=== PATIENT | female | born 1930 | race Caucasian/White ===

== ENCOUNTER 2016-12-11 12:00 | Inpatient (IN) ==
--- NOTE | 2016-12-11 12:34 | Emergency Department Note ---
Arrival - Arrival Chief Complaint: Shortness of Breath ED Nursing Triage Note: c/o SOB for a couple of days and weight gain. patient with hx of CHF given extra dose of lasix with no improvement. hx: A-fib Mode of Arrival: Stretcher Limitations: No Limitations Source: Patient, Family Time Seen by Provider: 12/11/16 12:27 - History of Present Illness HPI Narrative: This 86-year-old white female shelter patient with a prior history of atrial fibrillation with congestive failure presents with a increased complaints of shortness of breath over the last several days as well as weight gain at the shelter. They adjusted her Lasix doses without significant symptomatic improvement and thus the patient presents at this time. She denies any chest pain, pedal edema, or cough. She does have orthopnea. Incidentally she does complain of abdominal cramps from constipation. Currently at rest in bed she does not appear in any acute distress. Onset (ago): day(s) (Patient presents 3 days post onset of symptoms) Consistency: constant Severity: mild Allergies/Adverse Reactions: Allergies Allergy/AdvReac Type Severity Reaction Status Date / Time Penicillins Allergy Mild HIVES Verified 06/18/16 13:04 Home Medications: Home Medications Medication Instructions Recorded Confirmed Type Memantine [Namenda] 10 mg PO BEDTIME 02/04/15 12/11/16 History Spironolactone [Aldactone] 25 mg PO DAILY 02/04/15 12/11/16 History Albuterol Neb [Proventil Neb] 1.25 mg RESP TX Q12HR #60 neb 08/08/15 12/11/16 Rx Bisacodyl Tab [Dulcolax Tab] 20 mg PO Q4H PRN #0 tablet 08/12/15 12/11/16 Rx Gabapentin Cap/Tab [Neurontin 200 mg PO BEDTIME 11/07/15 12/11/16 History Cap/Tab] Potassium Chloride [K-Tab ER] 20 meq PO DAILY 11/08/15 12/11/16 History Pantoprazole Tab [Protonix Tab] 40 mg PO BID tablet 11/15/15 12/11/16 Rx Calcium (Carb)/Vit D 600-400 1 tablet PO BID 06/18/16 12/11/16 History [Caltrate 600 + D] Digoxin [Digox] 125 mcg PO QOTHER DAY 06/18/16 12/11/16 History Multivitamin [Multivitamins] 1 each PO DAILY 06/18/16 12/11/16 History Promethazine Inj [Phenergan Inj] 25 mg IM Q4H PRN 06/18/16 12/11/16 History Acetaminophen Tab [Tylenol Tab] 650 mg PO Q6H PRN #0 tablet 06/20/16 12/11/16 Rx Furosemide Tab [Lasix Tab] 40 mg PO BID DIURETIC #0 tablet 06/20/16 12/11/16 Rx Morphine ER Tab [Ms Contin] 15 mg PO BID #60 tablet 06/20/16 12/11/16 Rx Citalopram Hydrobromide 10 mg PO DAILY 12/11/16 12/11/16 History [Citalopram HBr] Donepezil HCl [Donepezil HCl] 5 mg PO BEDTIME 12/11/16 12/11/16 History Furosemide Tab [Lasix Tab] 60 mg PO BID 12/11/16 12/11/16 History Guaifenesin/Dextromethorphan 30 ml PO Q4H PRN 12/11/16 12/11/16 History [Tussin Dm Syrup] Loperamide HCl [Loperamide] 2 mg PO DAILY MDD 4 CAPLETS IN 24 12/11/16 12/11/16 History HR Metoprolol Succinate [Metoprolol 12.5 mg PO BID 12/11/16 12/11/16 History Succinate] Mirtazapine [Mirtazapine] 15 mg PO BEDTIME 12/11/16 12/11/16 History Tramadol HCl [Tramadol Tab] 50 mg PO BEDTIME 12/11/16 12/11/16 History Review of System - Review of System 12 point system: reviewed and no additional remarkable complaints except as stated - Review of System Constitutional: Present: as per HPI Respiratory: Present: as per HPI Cardiovascular: Present: as per HPI Gastrointestinal: Present: as per HPI Medical,Surgical,& Family Hx - Medical History Cardio: History of: Cardiac Dysrhythmia (afib, ventricular fib and ventricular tach July 2015), CHF, Hypertension, Cardiovascular Problems (A FIB) No history of: MD Psychological: History of: Depression Neurology: History of: Dementia No history of: Seizures Gastrointestinal: History of: Diverticulitis/ Diverticulosis, GERD, GI Problems (constipation) Musculoskeletal: History of: Musculoskeletal Problems (back surgery) Hematology: No history of: Anemia, Blood Disorders Other: History of: Miscellaneous Medical Problems (cellulitis left leg) - Surgical History Cardiac Surgeries: Patient Denies: Cardiac Catheterization HEENT Surgeries: Surgical HX of: Eye Surgery (bilateral cataracts removed with lens implantation) Abdominal Surgeries: Surgical HX of: Abdominal Surgery, Appendectomy, Cholecystectomy, Colonoscopy (approximately 5 years ago by patient recollection) Reproductive Surgeries: Surgical HX of;: Breast Surgery (breast implants), Hysterectomy - Family History Family History: Reports;: Family Cancer (throat-sister), Family Heart Disease ( mom), Family Hypertension (mom) Denies;: Family Diabetes - Social History Smoking Status: Never smoker Frequency of Alcohol Use: None Type of Drug Use: None Exam Physical Examination: GENERAL: Well developed, well nourished elderly white female in no acute distress. HEENT: Normocephalic. No trauma. Moist mucous membranes. EOMI. PERRLA. ENT NML NECK: Supple. No adenopathy. No JVD CARDIAC: Irregular. No murmurs. Heart rate 73 CHEST: Clear to auscultation. No respiratory distress. O2 sat 100% ABDOMEN: Soft. Nontender. Active bowel sounds. EXTREMITIES: No trauma. Normal ROM. No pedal edema. SKIN: No diaphoresis. No rash. NEURO: Alert. Oriented 3, motor, sensory, vibratory intact. No focal deficits. Vital Signs: Vital Signs Temperature 98.6 F 12/11/16 12:07 Pulse Rate 106 H 12/11/16 12:07 Respiratory Rate 18 12/11/16 13:20 Blood Pressure 121/57 12/11/16 12:07 O2 Sat by Pulse Oximetry 100 12/11/16 12:07 Course - Reevaluation(s) Reevaluation #1: Advised patient she has recurrent congestive failure and would require hospitalization once again - Consultations Consultation #1: Discussed with hospitalist service will admit for further evaluation treatment. Results - Labs CBC & BMP: 12/11/16 12:53 12/11/16 12:53 Labs: I reviewed the laboratory noted the mild anemia as well as the severely elevated d-dimer. - Impressions EKG: Atrial fibrillation at a rate of 73 with rare unifocal PVC. Normal QRS duration. Nonspecific ST changes. No acute injury pattern noted. - Diagnostic Findings Procedure: Chest x-ray: image reviewed by me, report reviewed by me ( Cardiomegaly with persistent congestive heart failure), KUB x-ray: image reviewed by me, report reviewed by me (Fecal stasis), CT: image reviewed by me, report reviewed by me (CTA per Dr. Jackson negative) Disposition Clinical Impression: Congestive heart failure, Bilateral pleural effusions Case discussed with: patient, patient's family Disposition: Still a Patient Condition: Guarded Time of Disposition: 14:27
--- NOTE | 2016-12-11 12:57 | XRay Report ---
Portable chest Date: 12/11/2016 Clinical history: Shortness of breath Comparison: 06/18/2016 Technique: Portable AP sitting chest Findings: The heart is minimally enlarged with calcification in the aortic knob. Decreased but persistent diffuse parenchymal findings with smaller pleural effusions. Calcification in the wall of the bilateral breast implants. Osteopenia with minimal levoscoliosis on the lower thoracic spine and degenerative changes. Impression: Improved but persistent mild to moderate CHF with small pleural effusions. Status post augmentation mammoplasty with osteopenia. PROCEDURE INTERPRETED AT [facility] DEPARTMENT OF RADIOLOGY Final Report Signed by: Dr. Izzy Jackson
--- NOTE | 2016-12-11 12:58 | XRay Report ---
Exam: XR KUB Date: 12/11/2016 12:27 PM Comparison: None Indication: Generalized abdominal pain Technique:[Supine abdomen] Findings: Nonobstructed bowel gas pattern. Increased fecal material in the colon. Prior cholecystectomy. Dextroscoliosis of the lumbar spine with osteopenia and degenerative changes. Diffuse arterial calcifications. Impression: Nonobstructive bowel gas pattern. Increased fecal material consistent with constipation. Prior cholecystectomy with diffuse arterial calcifications. Osteopenia with dextroscoliosis of the lumbar spine with degenerative changes. PROCEDURE INTERPRETED AT [facility] DEPARTMENT OF RADIOLOGY Final Report Signed by: Dr. Izzy Jackson
--- NOTE | 2016-12-11 13:00 | EKG Report ---
Stationary ECG Study [facility] ER Test Date: 12/11/2016 12:26:01 PM Pat Name: STEWART VERA Department: Room: 535 Gender: F [employer] Measurer: : 1930 Requested by: Lenard Harris Order Number: [id number] Reading MD: TELLY REDDING Intervals Johnston Rate: 73 P: 999 VA: 0 QRS: 66 QRSD: 86 T: -45 QT: 383 QTc: 409 Interpretive Statements ATRIAL FIBRILLATION WITH ABERRANT CONDUCTION OR VENTRICULAR PREMATURE COMPLEXES Electronically Signed On 12-12-16 18:54:35 CDT by TELLY REDDING [email or web address]
[2016-12-11] MEDS: ALBUTEROL 2.5 MG/3 ML NEB RESP TX SCH ×3 (13:19→13:45)
[2016-12-11 13:21] LABS: Basophils % 0.3 % (0.0-0.8); Eosinophils # 0.5 10*3/uL (0.0-0.87); Eosinophils % 4.8 % (0.00-10.9); Hematocrit 32.9 VOL% (35.7-47.0); Hemoglobin 9.7 GM/DL (12.0-16.0); Immature Granulocytes % 0.7 %; Immature Granulocytes Absolute 0.08 #; Lymphocytes # 1.2 10*3/uL (1.4-4.0); Lymphocytes % 11.3 % (21.3-54.2); Mean Corpuscular HGB Conc 29.5 GM/DL (32-36); Mean Corpuscular Hemoglobin 27 PG (27-34); Mean Corpuscular Volume 90.4 FL (87-102); Mean Platelet Volume 11.7 FL (9.6-12.0); Monocytes % 9.4 % (1.7-12.7); Neutrophils % 73.5 % (38.7-73.9); Platelet Count 189 T/CUMM (130-400); Red Blood Count 3.64 MC/CUMM (3.8-5.5); White Blood Count 10.9 T/CUMM (4-12)
[2016-12-11 13:32] LABS: D-Dimer 2.6 MG/L FEU; INR 1.1; Partial Thromboplastin Time 27.7 SECS (0-40)
[2016-12-11 13:34] LABS: Alanine Aminotransferase 11 U/L (13-56); Albumin 3.3 G/DL (3.4-5.0); Alkaline Phosphatase 136 U/L (45-117); Amylase 51 U/L (25-115); Aspartate Amino Transferase 16 U/L (0-37); Blood Urea Nitrogen 10 MG/DL (7-18); Calcium 8.5 MG/DL (8.5-10.1); Glucose 147 MG/DL (74-106); Osmolality,Calculated 287.8 MOS/KG (273-304); Sodium 144 MMOL/L (136-145); Total Protein 7.1 G/DL (6.4-8.3); Troponin I Only 0.017 NG/ML (0.00-0.045)
[2016-12-11] MEDS ORDERED: ONDANSETRON 4 MG/2 ML VIAL ONE (13:37)
[2016-12-11] MEDS: ONDANSETRON 4 MG/2 ML VIAL IV STA ×2 (13:40→13:42)
--- NOTE | 2016-12-11 14:27 | CT Report ---
Exam: CT chest with contrast, PE study Date: 12/11/2016 Comparison: None Reason:, Shortness of breath Pulmonary embolus Technique: Axial images of the chest were obtained after administration of 80 cc of IV Omnipaque 350 intravenous contrast. Coronal reformatted images were also acquired. The study was performed per pulmonary embolism protocol. Total DLP: 355.30 Findings: The heart is enlarged with coronary artery calcifications. No evidence of aortic dissection with arterial calcifications. Motion artifact with small filling defects in the subsegmental pulmonary arteries in the left upper lobe. Mediastinal and hilar nodes which are borderline size to minimally enlarged. At the level of the krishna, the right pleural effusion measures 62 mm in length. The left pleural effusion measures 10 mm in depth. There is associated atelectasis/consolidation in the posterior right upper lobe and the lower lobes, especially the right. Diffuse groundglass opacities are noted. Extensive calcification of the wall of the bilateral breast implants. Degenerative changes are noted with chronic T12 compression fracture. Impression: Motion artifact which could account for the possible filling defects in the subsegmental arteries in the left upper lobe location. However this finding makes it difficult to exclude small pulmonary emboli and therefore venous ultrasound of the lower extremities may be helpful for further evaluation. Cardiomegaly with coronary artery calcifications. Moderately large right and small left pleural effusions with associated atelectasis/infiltration/edema. Calcification in the wall of the breast implants. These findings were discussed with Dr. Dotson at 2:20 PM on 12/11/2016. This CT exam was performed using one or more the following dose reduction techniques: Automated exposure control, adjustment of the MA and/or KV according to patient size, or use of iterative reconstruction technique. PROCEDURE INTERPRETED AT [facility] DEPARTMENT OF RADIOLOGY Final Report Signed by: Dr. Izzy Jackson
[2016-12-11] MEDS ORDERED: ACETAMINOPHEN 325 MG TABLET PO PRN (14:33)
[2016-12-11] MEDS ORDERED: ONDANSETRON 4 MG/2 ML VIAL IV PRN (14:33)
--- NOTE | 2016-12-11 15:52 | Hospitalist History & Physical ---
Assessment and Plan - Time spent with patient Time spent with patient: Less than 30 minutes (1) CHF exacerbation Status: Acute Assessment and plan: A 66-year-old white female admitted with CHF exacerbation. Her chest x-ray and CT of the chest are showing bilateral pleural effusions. CT of the chest is recommending lower extremity ultrasound to rule out possible small PE. Will restart all of her home medicines. Put her on IV Lasix. Start some breathing treatments. Patient sees Dr. Fernandez regularly and she is asking if we can ask Merissa to come by and see her. We will do a courtesy consult for Merissa Cabezas NP ACNP Constipation due to opioid use--we will put her on a bowel regimen if not already on one. This is been discussed with Dr. Lai. Further recommendations to follow. Current Visit: Yes (2) Constipation due to opioid therapy Status: Acute Current Visit: Yes History of Present Illness Chief complaint: Shortness of breath History of present illness: Ms. Grant is an 86-year-old white female with history of CHF, hypertension, A. fib, and chronic pain [facility] ED [facility] with increasing shortness of breath for 3-4 days. Patient states she takes p.o. Lasix 40 mg twice daily per Dr. Fernandez but they have upped her to 60 since Wednesday because of the shortness of breath. Patient continued to worsen despite this so they brought her into the ED. She is afebrile, vital signs are stable and she is satting at 90% on 2 L. Her WBCs are normal and her BNP is 199. Her chest x-ray is showing persistent mild to moderate CHF with small pleural effusions. Dr. Dotson in the ER ordered a CT of the chest that is showing filling defects in the sub-segmental arteries in the left upper lobe location. They are making it difficult to exclude small pulmonary emboli and recommending venous ultrasound. It is also showing cardiomegaly and moderately large right and small left pleural effusions with associated atelectasis. Upon exam patient 's biggest complaint is abdominal distention with constipation and shortness of breath. She denies headache, dizziness, difficulty swallowing, chest pain, difficulty urinating, or lower extremity edema. Her sister is present and states that she has not eaten or drank much in the last week. Patient is incontinent and mostly bedridden. Hospitalist has been asked to admit Home Medications Medication Instructions Recorded Confirmed Type Memantine [Namenda] 10 mg PO BEDTIME 02/04/15 12/11/16 History Spironolactone [Aldactone] 25 mg PO DAILY 02/04/15 12/11/16 History Albuterol Neb [Proventil Neb] 1.25 mg RESP TX Q12HR #60 neb 08/08/15 12/11/16 Rx Bisacodyl Tab [Dulcolax Tab] 20 mg PO Q4H PRN #0 tablet 08/12/15 12/11/16 Rx Gabapentin Cap/Tab [Neurontin 200 mg PO BEDTIME 11/07/15 12/11/16 History Cap/Tab] Potassium Chloride [K-Tab ER] 20 meq PO DAILY 11/08/15 12/11/16 History Pantoprazole Tab [Protonix Tab] 40 mg PO BID tablet 11/15/15 12/11/16 Rx Calcium (Carb)/Vit D 600-400 1 tablet PO BID 06/18/16 12/11/16 History [Caltrate 600 + D] Digoxin [Digox] 125 mcg PO QOTHER DAY 06/18/16 12/11/16 History Multivitamin [Multivitamins] 1 each PO DAILY 06/18/16 12/11/16 History Promethazine Inj [Phenergan Inj] 25 mg IM Q4H PRN 06/18/16 12/11/16 History Acetaminophen Tab [Tylenol Tab] 650 mg PO Q6H PRN #0 tablet 06/20/16 12/11/16 Rx Furosemide Tab [Lasix Tab] 40 mg PO BID DIURETIC #0 tablet 06/20/16 12/11/16 Rx Morphine ER Tab [Ms Contin] 15 mg PO BID #60 tablet 06/20/16 12/11/16 Rx Citalopram Hydrobromide 10 mg PO DAILY 12/11/16 12/11/16 History [Citalopram HBr] Donepezil HCl [Donepezil HCl] 5 mg PO BEDTIME 12/11/16 12/11/16 History Furosemide Tab [Lasix Tab] 60 mg PO BID 12/11/16 12/11/16 History Guaifenesin/Dextromethorphan 30 ml PO Q4H PRN 12/11/16 12/11/16 History [Tussin Dm Syrup] Loperamide HCl [Loperamide] 2 mg PO DAILY MDD 4 CAPLETS IN 24 12/11/16 12/11/16 History HR Metoprolol Succinate [Metoprolol 12.5 mg PO BID 12/11/16 12/11/16 History Succinate] Mirtazapine [Mirtazapine] 15 mg PO BEDTIME 12/11/16 12/11/16 History Tramadol HCl [Tramadol Tab] 50 mg PO BEDTIME 12/11/16 12/11/16 History Allergies Allergy/AdvReac Type Severity Reaction Status Date / Time Penicillins Allergy Mild HIVES Verified 06/18/16 13:04 Medical,Surgical,& Family Hx - Medical History Cardio: History of: Cardiac Dysrhythmia (afib, ventricular fib and ventricular tach July 2015), CHF, Hypertension, Cardiovascular Problems (A FIB) No history of: [place] Psychological: History of: Depression Neurology: History of: Dementia No history of: Seizures Gastrointestinal: History of: Diverticulitis/ Diverticulosis, GERD, GI Problems (constipation) Musculoskeletal: History of: Musculoskeletal Problems (back surgery) Hematology: No history of: Anemia, Blood Disorders Other: History of: Miscellaneous Medical Problems (cellulitis left leg) - Surgical History Cardiac Surgeries: Patient Denies: Cardiac Catheterization HEENT Surgeries: Surgical HX of: Eye Surgery (bilateral cataracts removed with lens implantation) Abdominal Surgeries: Surgical HX of: Abdominal Surgery, Appendectomy, Cholecystectomy, Colonoscopy (approximately 5 years ago by patient recollection) Reproductive Surgeries: Surgical HX of;: Breast Surgery (breast implants), Hysterectomy - Family History Family History: Reports;: Family Cancer (throat-sister), Family Heart Disease ( mom), Family Hypertension (mom) Denies;: Family Diabetes - Social History Smoking Status: Never smoker Frequency of Alcohol Use: None Type of Drug Use: None Review of systems: Complete 10 system review of systems was obtained and pertinent negatives and positives are per HPI Exam - Constitutional Exam: Constitutional System: Mild distress. No tremulousness. Head: Normocephalic, atraumatic. Ears, Nose and Throat System: No evidence of Otitis or Mastoiditis. No epistaxis or discharge Eyes System: Pupils equal, round, and reactive. Extraocular muscles intact. Neck: Supple, without adenopathy, No jugular venous distention. No thyromegaly, neck mass, or prior surgery apparent. Respiratory System: Chest coarse bilaterally to auscultation. Cardiovascular System: Heart with irregularly irregular rate and rhythm. No murmur. GI System: Abdomen mildly distended, mildly tender. Hypoactive bowel sounds present. Musculoskeletal System: limbs with no pedal edema. Full distal pulses. Neurological System: No discernable sensory deficit. No aphasia Psychiatric System: Conversation is rational Results - Labs CBC & BMP: 12/11/16 12:53 12/11/16 12:53 Lab Results: I have reviewed the past 24 hour labs - Diagnostic Findings Procedure: Chest x-ray: report reviewed by me, KUB x-ray: report reviewed by me , CT - chest: report reviewed by me
[2016-12-11] MEDS ORDERED: PROMETHAZINE 25 MG/1 ML VIAL IM PRN (16:00)
--- NOTE | 2016-12-11 18:14 | Ultrasound Report ---
History is short of breath abnormal CT chest Bilateral lower extremity venous Doppler performed with grayscale, spectral Doppler, and color flow analysis performed and interpreted. No evidence of echogenic, noncompressible thrombus seen in either common femoral, superficial femoral, popliteal, or saphenous veins Impression: No evidence of DVT seen in either lower extremity. PROCEDURE INTERPRETED AT [facility] DEPARTMENT OF RADIOLOGY Final Report Signed by: Dr. Annabella Villalta
[2016-12-11] MEDS: PANTOPRAZOLE 40 MG TABLET PO SCH (18:17)
[2016-12-11] MEDS: SPIRONOLACTONE 25 MG TABLET PO SCH (18:17)
[2016-12-11] MEDS: POTASSIUM CHLORIDE 20 MEQ TABLET PO SCH (18:18)
[2016-12-11] MEDS: CITALOPRAM 20 MG TABLET PO SCH (18:18)
[2016-12-11] MEDS: MULTIVITAMIN (CENTRUM) TABLET PO SCH (18:18)
[2016-12-11] MEDS: DIGOXIN 0.125 MG TABLET PO SCH (18:18)
[2016-12-11] MEDS: LOPERAMIDE 2 MG CAPSULE PO SCH (18:18)
[2016-12-11] MEDS: ENOXAPARIN 30 MG/0.3 ML SYRINGE SUBCUT SCH (18:25)
[2016-12-11] MEDS: DOCUSATE SODIUM 100 MG CAPSULE PO SCH ×2 (18:25→20:33)
[2016-12-11] MEDS: FUROSEMIDE 40 MG/4 ML VIAL IV SCH (18:25)
--- NOTE | 2016-12-11 19:00 | Pulmonology Consult Note ---
History of Present Illness Chief complaint: Rule out PE. CHF. History of present illness: Ms. Grant is a 86 year old white female whom I been asked to see in pulmonary consultation. The request was pleural effusion, possible embolus. This patient complains of shortness of breath dyspnea on exertion chronic nonproductive cough and constipation. The remainder of her review of systems is negative. Allergies. Penicillin Home medicines. See below Hospital medicines. See below. Past history. Atrial fib. Chronic venous stasis of lower extremities. Previous appendectomy, cholecystectomy hysterectomy. Bilateral breast implants. Previous back surgery. History of erosive gastritis May 2016. History of iron deficiency anemia. Hiatal hernia Social history. Patient's sister who is an RN manages her care. Patient does not use alcohol or tobacco. She is . Family history. Her mother had heart disease and high blood pressure. A sister had throat cancer. Chest x-ray. Bilateral pleural effusions. Increased interstitial markings. Acute congestive heart failure. CT scan of the chest. Bilateral pleural effusions. Right is much larger than the left. I do not see any pulmonary emboli. Doppler venograms of the lower extremities. No deep venous thrombophlebitis Lab. Natruretic peptide is elevated 199. Electrolytes normal. Creatinine is 1.2. BUNs 10. There is a mild elevation of alkaline Pender. Transaminases are normal. Total bilirubin is 1.30. Total protein is 7.1. Albumin is 3.3. Globulin is 3.8. White blood cell count is 10,900 with 73.56 11 lymphocytes and 9 monocytes. H&H is 9.7/32.9. Red blood cell distribution width is elevated at 18. Physical exam. Vital signs. See below Psychiatric. Oriented 3 Pupils irises sclera conjunctiva eyelids are normal. Face is symmetrical. Lips and tongue are normal. Neck. Symmetrical and kyphotic. Thyroid was not palpated. Lymphatics. No submandibular cervical supraclavicular or epitrochlear adenopathy. Heart. Irregular 110 bpm Chest. Bilateral rales Abdomen. Very firm. Rare bowel sounds. Lower extremities +1/4 bilateral pedal and pretibial edema. Neuro. Cranial nerves are intact with decreased hearing acuity. Patient moves all 4 extremities. Sensory exam was not done. Gait was not tested. The remainder the physical exam is noncontributory. Impression. 1. Acute congestive heart failure with bilateral pleural effusions greater on the right as compared to the left 2. No evidence of deep venous thrombophlebitis 3. Do not think the patient had pulmonary emboli 4. Chronic atrial fib 5. See past Plan. 1. Continue diuresis. 2. Daily chest x-rays, BMP and BNP Home Medications Medication Instructions Recorded Confirmed Type Memantine [Namenda] 10 mg PO BEDTIME 02/04/15 12/11/16 History Spironolactone [Aldactone] 25 mg PO DAILY 02/04/15 12/11/16 History Albuterol Neb [Proventil Neb] 1.25 mg RESP TX Q12HR #60 neb 08/08/15 12/11/16 Rx Bisacodyl Tab [Dulcolax Tab] 20 mg PO Q4H PRN #0 tablet 08/12/15 12/11/16 Rx Gabapentin Cap/Tab [Neurontin 200 mg PO BEDTIME 11/07/15 12/11/16 History Cap/Tab] Potassium Chloride [K-Tab ER] 20 meq PO DAILY 11/08/15 12/11/16 History Pantoprazole Tab [Protonix Tab] 40 mg PO BID tablet 11/15/15 12/11/16 Rx Calcium (Carb)/Vit D 600-400 1 tablet PO BID 06/18/16 12/11/16 History [Caltrate 600 + D] Digoxin [Digox] 125 mcg PO QOTHER DAY 06/18/16 12/11/16 History Multivitamin [Multivitamins] 1 each PO DAILY 06/18/16 12/11/16 History Promethazine Inj [Phenergan Inj] 25 mg IM Q4H PRN 06/18/16 12/11/16 History Acetaminophen Tab [Tylenol Tab] 650 mg PO Q6H PRN #0 tablet 06/20/16 12/11/16 Rx Furosemide Tab [Lasix Tab] 40 mg PO BID DIURETIC #0 tablet 06/20/16 12/11/16 Rx Morphine ER Tab [Ms Contin] 15 mg PO BID #60 tablet 06/20/16 12/11/16 Rx Citalopram Hydrobromide 10 mg PO DAILY 12/11/16 12/11/16 History [Citalopram HBr] Donepezil HCl [Donepezil HCl] 5 mg PO BEDTIME 12/11/16 12/11/16 History Furosemide Tab [Lasix Tab] 60 mg PO BID 12/11/16 12/11/16 History Guaifenesin/Dextromethorphan 30 ml PO Q4H PRN 12/11/16 12/11/16 History [Tussin Dm Syrup] Loperamide HCl [Loperamide] 2 mg PO DAILY MDD 4 CAPLETS IN 24 12/11/16 12/11/16 History HR Metoprolol Succinate [Metoprolol 12.5 mg PO BID 12/11/16 12/11/16 History Succinate] Mirtazapine [Mirtazapine] 15 mg PO BEDTIME 12/11/16 12/11/16 History Tramadol HCl [Tramadol Tab] 50 mg PO BEDTIME 12/11/16 12/11/16 History Allergies Allergy/AdvReac Type Severity Reaction Status Date / Time Penicillins Allergy Mild HIVES Verified 06/18/16 13:04 Exam (Pulmonay) H&P - Constitutional Vitals: Period Temp Pulse Resp BP Sys/Tamayo Pulse Ox Last 24 Hr 98.1 F 78-80 17-18 101-102/51-64 94-94 Medical,Surgical,& Family Hx - Medical History Cardio: History of: Cardiac Dysrhythmia (afib, ventricular fib and ventricular tach July 2015), CHF, Hypertension, Cardiovascular Problems (A FIB) No history of: NV Psychological: History of: Depression Neurology: History of: Dementia No history of: Brain Aneurysm, Cerebral Hemorrhage, Cerebrovascular Accident , Cerebral Palsy, Migraine, Multiple Sclerosis, Parkinson's Disease, Peripheral Neuropathy, Seizures, TIA, Vertigo, Neurologocal Cancer Gastrointestinal: History of: Diverticulitis/ Diverticulosis, GERD, GI Problems (constipation) Musculoskeletal: History of: Musculoskeletal Problems (back surgery) Hematology: No history of: Anemia, Blood Disorders Other: History of: Miscellaneous Medical Problems (cellulitis left leg) - Surgical History Cardiac Surgeries: Patient Denies: Cardiac Catheterization Neurologic Surgeries: Patient denies: Brain Aneurysm, Cerebral Hemorrhage, Neurologic Surgery HEENT Surgeries: Surgical HX of: Eye Surgery (bilateral cataracts removed with lens implantation) Abdominal Surgeries: Surgical HX of: Abdominal Surgery, Appendectomy, Cholecystectomy, Colonoscopy (approximately 5 years ago by patient recollection) Reproductive Surgeries: Surgical HX of;: Breast Surgery (breast implants), Hysterectomy - Family History Family History: Reports;: Family Cancer (throat-sister), Family Heart Disease ( mom), Family Hypertension (mom) Denies;: Family Diabetes - Social History Smoking Status: Never smoker Frequency of Alcohol Use: None Type of Drug Use: None Results - Labs CBC & BMP: 12/11/16 12:53 12/11/16 12:53
[2016-12-11] MEDS: ALBUTEROL 1.25 MG/3 ML NEB RESP TX SCH (19:10)
[2016-12-11] MEDS: MORPHINE ER 15 MG TABLET PO SCH (20:31)
[2016-12-11] MEDS: traMADol 50 MG TABLET PO SCH (20:32)
[2016-12-11] MEDS: GABAPENTIN 100 MG CAPSULE PO SCH (20:32)
[2016-12-11] MEDS: METOPROLOL SUCCINATE XL 25 MG TABLET PO SCH (20:32)
[2016-12-11] MEDS: CALCIUM (CARBONATE)/VITAMIN D 600 MG-400 UNIT TABLET PO SCH (20:33)
[2016-12-11] MEDS: MIRTAZAPINE 15 MG TABLET PO SCH (20:33)
[2016-12-11] MEDS: MEMANTINE 10 MG TABLET PO SCH (20:33)
[2016-12-11] MEDS: DONEPEZIL 5 MG TABLET PO SCH (22:32)
[2016-12-12 05:10] LABS: Basophils % 0.4 % (0.0-0.8); Eosinophils # 0.5 10*3/uL (0.0-0.87); Eosinophils % 4.4 % (0.00-10.9); Hematocrit 29.9 VOL% (35.7-47.0); Immature Granulocytes % 0.7 %; Immature Granulocytes Absolute 0.07 #; Lymphocytes # 1.8 10*3/uL (1.4-4.0); Lymphocytes % 16.8 % (21.3-54.2); Mean Corpuscular HGB Conc 30.1 GM/DL (32-36); Mean Corpuscular Hemoglobin 27 PG (27-34); Mean Platelet Volume 11.7 FL (9.6-12.0); Monocytes # 1.1 10*3/uL (0.11-0.8); Monocytes % 10.1 % (1.7-12.7); Neutrophils # 7.3 10*3/uL (1.4-7.4); Neutrophils % 67.6 % (38.7-73.9); Platelet Count 192 T/CUMM (130-400); Red Blood Count 3.36 MC/CUMM (3.8-5.5); Red Cell Distribution Width 18.1 % (9.3-17.3); White Blood Count 10.7 T/CUMM (4-12)
[2016-12-12 05:41] LABS: Calcium 8.8 MG/DL (8.5-10.1); Magnesium 2.2 MG/DL (1.8-2.4); Osmolality,Calculated 280.3 MOS/KG (273-304); Potassium 4.2 MMOL/L (3.5-5.1)
[2016-12-12] MEDS: LINACLOTIDE 145 MCG CAPSULE PO SCH (07:05)
[2016-12-12] MEDS: ALBUTEROL 1.25 MG/3 ML NEB RESP TX SCH ×2 (07:20→19:36)
[2016-12-12] MEDS: MORPHINE ER 15 MG TABLET PO SCH ×2 (08:53→21:05)
[2016-12-12] MEDS: CITALOPRAM 20 MG TABLET PO SCH (08:53)
[2016-12-12] MEDS: SPIRONOLACTONE 25 MG TABLET PO SCH (08:54)
[2016-12-12] MEDS: LOPERAMIDE 2 MG CAPSULE PO SCH ×2 (08:54)
[2016-12-12] MEDS: DOCUSATE SODIUM 100 MG CAPSULE PO SCH ×2 (08:54→21:04)
[2016-12-12] MEDS: POTASSIUM CHLORIDE 20 MEQ TABLET PO SCH (08:54)
[2016-12-12] MEDS: PANTOPRAZOLE 40 MG TABLET PO SCH (08:54)
[2016-12-12] MEDS: METOPROLOL SUCCINATE XL 25 MG TABLET PO SCH ×2 (08:54→21:04)
[2016-12-12] MEDS: CALCIUM (CARBONATE)/VITAMIN D 600 MG-400 UNIT TABLET PO SCH ×2 (08:54→21:04)
[2016-12-12] MEDS: MULTIVITAMIN (CENTRUM) TABLET PO SCH (08:54)
[2016-12-12] MEDS: FUROSEMIDE 40 MG/4 ML VIAL IV SCH ×2 (08:55→15:00)
--- NOTE | 2016-12-12 09:07 | EKG Report ---
Stationary ECG Study [facility] Test Date: 12/12/2016 9:06:47 AM Pat Name: STEWART VERA Department: Room: 535 Gender: F Clerk Rating: DAVID : 1930 Requested by: Tiffanie Chery Order Number: [id number] Reading MD: TELLY REDDING Intervals [place] Rate: 72 P: 999 VT: 0 QRS: 77 QRSD: 79 T: 253 QT: 367 QTc: 391 Interpretive Statements ATRIAL FIBRILLATION ST DEVIATION AND MODERATE T-WAVE ABNORMALITY Electronically Signed On 12-12-16 20:10:38 CDT by TELLY REDDING [email or web address]
--- NOTE | 2016-12-12 09:27 | XRay Report ---
History short of breath Comparison 12/11/2016 The heart is enlarged with upper lobe vascular congestion There remain mild to moderate diffuse bilateral hazy and reticular pulmonary opacities with slight overall improvement. A small left effusion remains Impression: Slight improvement with continued right greater than left infiltrates versus asymmetric edema PROCEDURE INTERPRETED AT [facility] DEPARTMENT OF RADIOLOGY Final Report Signed by: Dr. Annabella Villalta
--- NOTE | 2016-12-12 10:08 | XRay Report ---
History is abdomen pain and constipation Comparison 12/11/2016 Mild air scattered throughout the bowel. Mild fecal material throughout the bowel is less pronounced than on the prior study. No small bowel dilatation or organomegaly is identified. The film is flipped from right to left. Clips in the right upper abdomen again seen. Vascular calcifications and scoliosis again demonstrated Impression: Nonspecific bowel gas pattern mildly improved in the interval PROCEDURE INTERPRETED AT [facility] DEPARTMENT OF RADIOLOGY Final Report Signed by: Dr. Annabella Villalta
--- NOTE | 2016-12-12 10:11 | Pulmonology Progress Note ---
Pulmonary - PN: Subj Interval history: This 86-year-old white female whom I saw in pulmonary consultation 12/11/2016. Requests concern pleural effusions and possible pulmonary emboli. She complained of shortness of breath and dyspnea on exertion and a nonproductive cough. She also complained of constipation. My impressions were. 1. Acute congestive heart failure with bilateral pleural effusions greater on the right as compared to the left 2. No evidence of deep venous thrombophlebitis 3. Do not think the patient had pulmonary emboli 4. Chronic atrial fib 5. See past 12/12/2016. Today's chest x-ray is a little better there left pleural effusion bilaterally. Cannot rule out small infiltrate in the right lower lung. The patient complains of constipation and has not been responsive to medicines. Portable KUB shows no evidence of ileus. Her abdomen is firm. There are no microbiology reports. White blood cell count is 10,700 with 67.6 segs 16.8 lymphs and 10.1 monocytes H&H is 9.0/29.9. Platelets are 192,000. Electrolytes are normal. Creatinine is 1.2. BUN is 12. Natruretic peptide is 200. Patient says her breathing is markedly better today and her cough has resolved. She was lying almost flat in bed and seemed comfortable. Physical exam. Vital signs. See below. Psychiatric. Oriented 3. Neurologic. Cranial nerves are intact with decreased hearing acuity. Patient moves all 4 extremities. Face. Symmetrical. No rash. No mass. Neck. Symmetrical kyphotic with no meningismus. Lymphatics. No submandibular cervical supraclavicular or epitrochlear adenopathy. Chest. Moving air much better I do not hear wheezes or rales. Heart. Lateral PMI Abdomen is firm. I did not hear any bowel sounds. Extremities. Nothing to suggest deep venous thrombophlebitis. The remainder the physical exam is noncontributory per Plan. 1. Continue diuresis. 2. Daily chest x-rays, BMP and BNP Home Medications #3 abdomen is firm with obstipation/constipation. Watch Exam (Progress Note) - Constitutional Vitals: Period Temp Pulse Resp BP Sys/Tamayo Pulse Ox Last 24 Hr 98.1 F-99.4 F 71-112 17-20 99-115/51-65 91-100 Results - Labs CBC & BMP: 12/12/16 04:41 12/12/16 04:40
--- NOTE | 2016-12-12 12:38 | Hospitalist Progress Note ---
Assessment and Plan - Time spent with patient Time spent with patient: Greater than 30 minutes (1) Pleural effusion Status: Acute Assessment and plan: Continue management for congestive heart failure exacerbation. Current Visit: Yes (2) CHF exacerbation Status: Acute Assessment and plan: See above. Current Visit: Yes (3) Constipation due to opioid therapy Status: Acute Assessment and plan: Add bisacodyl. Secondary to opiate use. Current Visit: Yes (4) Chronic a-fib Problem details: Not an anticoagulant candidate due to frequent falling and anemia. Status: Chronic Assessment and plan: Continue medications. Current Visit: No (5) Dementia Status: Acute Assessment and plan: Continue medications. Current Visit: No Hospitalist: Subjective Interval history: Complains of constipation. No other complaints. Exam - Constitutional Vitals: Period Temp Pulse Resp BP Sys/Tamayo Pulse Ox Last 24 Hr 97.8 F-99.4 F 56-112 17-20 99-115/51-67 91-100 General appearance: no acute distress - Head Head exam: Present: normocephalic, atraumatic - Eye Eye exam: Present: EOMI Pupils: Present: RAHEEL - ENT ENT exam: Present: normal exam - Neck Neck exam: Present: normal inspection - Respiratory Respiratory exam: Present: clear to auscultation bilaterally. Absent: rhonchi, wheezes - Cardiovascular Cardiovascular exam: Present: regular rate and rhythm. Absent: gallop, rubs, systolic murmur - GI/Abdominal GI/Abdominal exam: Present: normal bowel sounds, soft. Absent: distended, firm , guarding, tenderness, rebound - Extremities Exam Extremities exam: Present: normal inspection. Absent: calf tenderness, edema Results - Labs CBC & BMP: 12/12/16 04:41 12/12/16 04:40 Lab Results: I have reviewed the past 24 hour labs
[2016-12-12] MEDS: ENOXAPARIN 30 MG/0.3 ML SYRINGE SUBCUT SCH (14:59)
[2016-12-12] MEDS: BISACODYL 5 MG TABLET PO PRN ×2 (17:56→21:04)
[2016-12-12] MEDS: GABAPENTIN 100 MG CAPSULE PO SCH (21:04)
[2016-12-12] MEDS: MEMANTINE 10 MG TABLET PO SCH (21:05)
[2016-12-12] MEDS: DONEPEZIL 5 MG TABLET PO SCH (21:05)
[2016-12-12] MEDS: traMADol 50 MG TABLET PO SCH (21:05)
[2016-12-12] MEDS: MIRTAZAPINE 15 MG TABLET PO SCH (21:05)
[2016-12-12] MEDS: DESITIN 4OZ/NYSTATIN 15 GRAM MIXTURE PASTE TOP SCH (22:39)
[2016-12-13 06:39] LABS: Basophils % 0.3 % (0.0-0.8); Eosinophils # 0.5 10*3/uL (0.0-0.87); Eosinophils % 4.8 % (0.00-10.9); Hematocrit 29.2 VOL% (35.7-47.0); Hemoglobin 8.8 GM/DL (12.0-16.0); Immature Granulocytes % 0.6 %; Immature Granulocytes Absolute 0.07 #; Lymphocytes # 1.6 10*3/uL (1.4-4.0); Lymphocytes % 14.2 % (21.3-54.2); Mean Corpuscular HGB Conc 30.1 GM/DL (32-36); Mean Corpuscular Hemoglobin 27 PG (27-34); Mean Corpuscular Volume 88.2 FL (87-102); Mean Platelet Volume 12.7 FL (9.6-12.0); Monocytes # 1.3 10*3/uL (0.11-0.8); Monocytes % 11.5 % (1.7-12.7); Neutrophils # 7.6 10*3/uL (1.4-7.4); Neutrophils % 68.6 % (38.7-73.9); Platelet Count 191 T/CUMM (130-400); Red Blood Count 3.31 MC/CUMM (3.8-5.5); Red Cell Distribution Width 17.8 % (9.3-17.3); White Blood Count 11.1 T/CUMM (4-12)
[2016-12-13] MEDS: LINACLOTIDE 145 MCG CAPSULE PO SCH (06:39)
[2016-12-13] MEDS: BISACODYL 5 MG TABLET PO PRN (06:48)
[2016-12-13 07:09] LABS: Calcium 8.3 MG/DL (8.5-10.1); Magnesium 2.3 MG/DL (1.8-2.4); Osmolality,Calculated 281.3 MOS/KG (273-304); Potassium 3.9 MMOL/L (3.5-5.1)
[2016-12-13] MEDS: ALBUTEROL 1.25 MG/3 ML NEB RESP TX SCH ×2 (07:35→20:53)
[2016-12-13] MEDS: MULTIVITAMIN (CENTRUM) TABLET PO SCH ×2 (08:44→08:55)
[2016-12-13] MEDS: SPIRONOLACTONE 25 MG TABLET PO SCH (08:44)
[2016-12-13] MEDS: METOPROLOL SUCCINATE XL 25 MG TABLET PO SCH ×2 (08:44→20:35)
[2016-12-13] MEDS: CITALOPRAM 20 MG TABLET PO SCH (08:44)
[2016-12-13] MEDS: CALCIUM (CARBONATE)/VITAMIN D 600 MG-400 UNIT TABLET PO SCH ×3 (08:45→20:35)
[2016-12-13] MEDS: DOCUSATE SODIUM 100 MG CAPSULE PO SCH ×2 (08:45→20:36)
[2016-12-13] MEDS: LOPERAMIDE 2 MG CAPSULE PO SCH (08:45)
[2016-12-13] MEDS: MORPHINE ER 15 MG TABLET PO SCH ×2 (08:45→20:36)
[2016-12-13] MEDS: POTASSIUM CHLORIDE 20 MEQ TABLET PO SCH (08:45)
[2016-12-13] MEDS: DESITIN 4OZ/NYSTATIN 15 GRAM MIXTURE PASTE TOP SCH ×2 (08:45→20:35)
[2016-12-13] MEDS: PANTOPRAZOLE 40 MG TABLET PO SCH (08:45)
[2016-12-13] MEDS: DIGOXIN 0.125 MG TABLET PO SCH (08:48)
--- NOTE | 2016-12-13 08:53 | XRay Report ---
Single view of the chest. Indication: Congestive heart failure, shortness of breath and cough. Comparison: December 12, 2016. Heart is enlarged. The pulmonary vasculature is prominent. There is worsening infiltrate present in the right mid and lower lung field and a stable right pleural effusion. There is worsening infiltrate present in the left lung base. Calcified breast implants. Degenerative changes of the spinal column. Impression: Worsening bilateral infiltrates. PROCEDURE INTERPRETED AT [facility] DEPARTMENT OF RADIOLOGY Final Report Signed by: Dr. Tamra Villalta
[2016-12-13] MEDS: FUROSEMIDE 40 MG/4 ML VIAL IV SCH (09:18)
[2016-12-13] MEDS ORDERED: LEVOFLOXACIN INJ 500 MG in PREMIX 1 EACH IV ONE (11:00)
--- NOTE | 2016-12-13 11:07 | Pulmonology Progress Note ---
Pulmonary - PN: Subj Interval history: This 86-year-old white female whom I saw in pulmonary consultation 12/11/2016. Requests concern pleural effusions and possible pulmonary emboli. She complained of shortness of breath and dyspnea on exertion and a nonproductive cough. She also complained of constipation. My impressions were. 1. Acute congestive heart failure with bilateral pleural effusions greater on the right as compared to the left 2. No evidence of deep venous thrombophlebitis 3. Do not think the patient had pulmonary emboli 4. Chronic atrial fib 5. See past 12/12/2016. Today's chest x-ray is a little better there left pleural effusion bilaterally. Cannot rule out small infiltrate in the right lower lung. The patient complains of constipation and has not been responsive to medicines. Portable KUB shows no evidence of ileus. Her abdomen is firm. There are no microbiology reports. White blood cell count is 10,700 with 67.6 segs 16.8 lymphs and 10.1 monocytes H&H is 9.0/29.9. Platelets are 192,000. Electrolytes are normal. Creatinine is 1.2. BUN is 12. Natruretic peptide is 200. Patient says her breathing is markedly better today and her cough has resolved. She was lying almost flat in bed and seemed comfortable. 12/13/2016. This patient is lying flat in bed comfortable this morning. Her chest x-ray is markedly improved. Pulmonary edema is 95% resolved. BNP remains elevated 237. Electrolytes are normal. Creatinine is 1.30 with a BUN of 15. CBC is stable. There are no positive results reported on the microbiology. Abdomen is better. Physical exam. Vital signs. See below. Psychiatric. Oriented 3. Neurologic. Cranial nerves are intact with decreased hearing acuity. Patient moves all 4 extremities. Face. Symmetrical. No rash. No mass. Neck. Symmetrical kyphotic with no meningismus. Lymphatics. No submandibular cervical supraclavicular or epitrochlear adenopathy. Chest. Moving air much better. I do not hear wheezes or rales. Heart. Lateral PMI Abdomen. Nontender. Positive bowel sounds. Extremities. Nothing to suggest deep venous thrombophlebitis. The remainder the physical exam is noncontributory per Plan. 1. Continue diuresis. 2. Daily chest x-rays, BMP and BNP Home Medications #3 12/12/2016. Abdomen is firm with obstipation/constipation. Watch Exam (Progress Note) - Constitutional Vitals: Period Temp Pulse Resp BP Sys/Tamayo Pulse Ox Last 24 Hr 97.7 F-98.6 F 56-82 16-20 97-129/56-71 94-100 Results - Labs CBC & BMP: 12/13/16 05:06 12/13/16 05:06
--- NOTE | 2016-12-13 12:47 | Hospitalist Progress Note ---
Assessment and Plan - Time spent with patient Time spent with patient: Greater than 30 minutes (1) Pneumonia Status: Acute Assessment and plan: Start Levaquin. Current Visit: No (2) Pleural effusion Status: Acute Assessment and plan: Continue management for congestive heart failure exacerbation. Current Visit: Yes (3) CHF exacerbation Status: Acute Assessment and plan: See above. Switching IV to oral Lasix. Current Visit: Yes (4) Constipation due to opioid therapy Status: Acute Assessment and plan: Add bisacodyl. Secondary to opiate use. Current Visit: Yes (5) Chronic a-fib Problem details: Not an anticoagulant candidate due to frequent falling and anemia. Status: Chronic Assessment and plan: Continue medications. Current Visit: No (6) Dementia Status: Acute Assessment and plan: Continue medications. Current Visit: No Hospitalist: Subjective Interval history: Patient has no complaints and states she feels much better than from admission. No overnight events. Chest x-ray was repeated. Exam - Constitutional Vitals: Period Temp Pulse Resp BP Sys/Tamayo Pulse Ox Last 24 Hr 97.7 F-98.8 F 68-82 16-20 97-148/56-71 94-100 General appearance: no acute distress - Head Head exam: Present: normocephalic, atraumatic - Eye Eye exam: Present: EOMI Pupils: Present: RAHEEL - ENT ENT exam: Present: normal exam - Neck Neck exam: Present: normal inspection - Respiratory Respiratory exam: Present: rales (Lower lung bases.). Absent: rhonchi, wheezes - Cardiovascular Cardiovascular exam: Present: regular rate and rhythm. Absent: gallop, rubs, systolic murmur - GI/Abdominal GI/Abdominal exam: Present: normal bowel sounds, soft. Absent: distended, firm , guarding, tenderness, rebound - Extremities Exam Extremities exam: Present: normal inspection. Absent: calf tenderness, edema Results - Labs CBC & BMP: 12/13/16 05:06 12/13/16 05:06 Lab Results: I have reviewed the past 24 hour labs
[2016-12-13] MEDS: ENOXAPARIN 30 MG/0.3 ML SYRINGE SUBCUT SCH (15:11)
[2016-12-13] MEDS: FUROSEMIDE 40 MG TABLET PO SCH (15:12)
[2016-12-13] MEDS: MEMANTINE 10 MG TABLET PO SCH (20:35)
[2016-12-13] MEDS: GABAPENTIN 100 MG CAPSULE PO SCH (20:35)
[2016-12-13] MEDS: traMADol 50 MG TABLET PO SCH (20:36)
[2016-12-13] MEDS: MIRTAZAPINE 15 MG TABLET PO SCH (20:36)
[2016-12-13] MEDS: DONEPEZIL 5 MG TABLET PO SCH (20:36)
[2016-12-14 06:36] LABS: Basophils % 0.2 % (0.0-0.8); Eosinophils # 0.5 10*3/uL (0.0-0.87); Eosinophils % 5.7 % (0.00-10.9); Hematocrit 28.9 VOL% (35.7-47.0); Hemoglobin 8.4 GM/DL (12.0-16.0); Immature Granulocytes % 0.7 %; Immature Granulocytes Absolute 0.06 #; Lymphocytes # 1.7 10*3/uL (1.4-4.0); Lymphocytes % 18.9 % (21.3-54.2); Mean Corpuscular HGB Conc 29.1 GM/DL (32-36); Mean Corpuscular Hemoglobin 26 PG (27-34); Mean Platelet Volume 11.9 FL (9.6-12.0); Monocytes # 0.9 10*3/uL (0.11-0.8); Monocytes % 10.5 % (1.7-12.7); Neutrophils # 5.7 10*3/uL (1.4-7.4); Platelet Count 173 T/CUMM (130-400); Red Blood Count 3.21 MC/CUMM (3.8-5.5); Red Cell Distribution Width 17.6 % (9.3-17.3); White Blood Count 8.9 T/CUMM (4-12)
[2016-12-14] MEDS: LINACLOTIDE 145 MCG CAPSULE PO SCH (06:37)
[2016-12-14 07:08] LABS: Calcium 8.6 MG/DL (8.5-10.1); Magnesium 2.2 MG/DL (1.8-2.4); Osmolality,Calculated 277.5 MOS/KG (273-304); Potassium 3.8 MMOL/L (3.5-5.1)
[2016-12-14] MEDS: ALBUTEROL 1.25 MG/3 ML NEB RESP TX SCH (07:20)
--- NOTE | 2016-12-14 07:43 | XRay Report ---
XR chest 1V portable Indication: CHF, shortness of breath and cough. Chest one view: Comparison yesterday. Breast implants, cardiomegaly, hazy obscuration of the right lung and both lung bases appear unchanged. No new opacities are seen. Impression: No change. PROCEDURE INTERPRETED AT [facility] DEPARTMENT OF RADIOLOGY Final Report Signed by: Pranav Carmichael M.D.
[2016-12-14] MEDS: MORPHINE ER 15 MG TABLET PO SCH (08:38)
[2016-12-14] MEDS: METOPROLOL SUCCINATE XL 25 MG TABLET PO SCH (08:39)
[2016-12-14] MEDS: FUROSEMIDE 40 MG TABLET PO SCH ×2 (08:39→15:33)
[2016-12-14] MEDS: DOCUSATE SODIUM 100 MG CAPSULE PO SCH (08:39)
[2016-12-14] MEDS: LOPERAMIDE 2 MG CAPSULE PO SCH (08:39)
[2016-12-14] MEDS: POTASSIUM CHLORIDE 20 MEQ TABLET PO SCH (08:39)
[2016-12-14] MEDS: PANTOPRAZOLE 40 MG TABLET PO SCH (08:39)
[2016-12-14] MEDS: MULTIVITAMIN (CENTRUM) TABLET PO SCH (08:39)
[2016-12-14] MEDS: CALCIUM (CARBONATE)/VITAMIN D 600 MG-400 UNIT TABLET PO SCH (08:39)
[2016-12-14] MEDS: SPIRONOLACTONE 25 MG TABLET PO SCH (08:48)
[2016-12-14] MEDS: DESITIN 4OZ/NYSTATIN 15 GRAM MIXTURE PASTE TOP SCH (08:48)
[2016-12-14] MEDS ORDERED: LEVOFLOXACIN INJ 250 MG in PREMIX 1 EACH IV SCH (11:30)
--- NOTE | 2016-12-14 11:57 | Pulmonology Progress Note ---
Pulmonary - PN: Subj Interval history: Clemente Samuel, ANP-BC, GNP-BC, acting as scribe for Dr. Calvin Corado This 86-year-old white female who we saw in initial pulmonary consultation 2016. The request for consultation concerned pleural effusions and possible pulmonary emboli. She complained of shortness of breath and dyspnea on exertion and a nonproductive cough. She also complained of constipation. At that time, our impressions were: 1. Acute congestive heart failure with bilateral pleural effusions greater on the right as compared to the left 2. No evidence of deep venous thrombophlebitis 3. Do not think the patient had pulmonary emboli 4. Chronic atrial fib 5. See past 12/12/2016. Today's chest x-ray is a little better there left pleural effusion bilaterally. Cannot rule out small infiltrate in the right lower lung. The patient complains of constipation and has not been responsive to medicines. Portable KUB shows no evidence of ileus. Her abdomen is firm. There are no microbiology reports. White blood cell count is 10,700 with 67.6 segs 16.8 lymphs and 10.1 monocytes H&H is 9.0/29.9. Platelets are 192,000. Electrolytes are normal. Creatinine is 1.2. BUN is 12. Natruretic peptide is 200. Patient says her breathing is markedly better today and her cough has resolved. She was lying almost flat in bed and seemed comfortable. 12/13/2016. This patient is lying flat in bed comfortable this morning. Her chest x-ray is markedly improved. Pulmonary edema is 95% resolved. BNP remains elevated 237. Electrolytes are normal. Creatinine is 1.30 with a BUN of 15. CBC is stable. There are no positive results reported on the microbiology. Abdomen is better. 12/04/2016. Patient was seen today along with her sister. Gonzales Fisher RN, was also present. Patient is sitting up in the bedside chair and states that her breathing is markedly improved. Chest x-ray shows that her heart failure has resolved. BNP is 244. There are no positive cultures. Medications have been reviewed. We made no changes today. Labs been reviewed. White count is 8900 with 64.0% segs; H&H 8.4/28.9; platelet count 173,000; creatinine 1.30, BUN 16, sodium 139, potassium 3.8, magnesium 2.2 Exam (Progress Note) - Constitutional Vitals: Period Temp Pulse Resp BP Sys/Tamayo Pulse Ox Last 24 Hr 97.5 F-98.8 F 52-81 16-18 97-117/48-79 92-100 Exam: Chest is wheeze free Heart with a lateral PMI Abdomen is nontender and nondistended; bowel sounds are positive 4 Extremities with nothing to suggest acute deep venous thrombophlebitis Psychiatric alert and oriented 3 Neurologic long-term motor function is intact Plan: The patient is markedly improved from a pulmonary standpoint. We will sign off. Please reconsult as needed. Results - Labs CBC & BMP: 12/14/16 05:27 12/14/16 05:27
--- NOTE | 2016-12-14 15:15 | Discharge Summary ---
Hospital Course - Hospital Course Hospital Course: Ms. Grant was admitted with shortness of breath. She was found to have pneumonia and initiated on IV antibiotics. She is also felt to have acute exacerbation of congestive heart failure was initiated and IV diuretics however this was switched to oral at time of discharge. Patient was constipated and this was managed with laxatives. By discharge the patient had met maximum benefit of hospitalization. - Time spent with patient Time with patient DS: Greater than 30 minutes Diagnosis - Discharge Diagnosis (1) Pneumonia Status: Acute (2) Pleural effusion Status: Acute (3) CHF exacerbation Status: Acute (4) Constipation due to opioid therapy Status: Acute (5) Chronic a-fib Status: Chronic (6) Dementia Status: Acute Discharge Plan - Discharge Data Disposition: Disch To Home/Self Care Condition at Discharge: Stable Discharge Diet: advance to your usual diet Activity: resume usual activities as tolerated - Discharge Medications New Docusate Sodium Cap [Colace Cap] 100 mg PO BID #0 capsule Levofloxacin Tab [Levaquin Tab] 250 mg PO DAILY #4 tablet Linaclotide [Linzess] 145 mcg PO AC BREAKFAST capsule Continue Memantine [Namenda] 10 mg PO BEDTIME Spironolactone [Aldactone] 25 mg PO DAILY Albuterol Neb [Proventil Neb] 1.25 mg RESP TX Q12HR #60 neb Bisacodyl Tab [Dulcolax Tab] 20 mg PO Q4H PRN #0 tablet PRN Reason: Constipation Gabapentin Cap/Tab [Neurontin Cap/Tab] 200 mg PO BEDTIME Potassium Chloride [K-Tab ER] 20 meq PO DAILY Pantoprazole Tab [Protonix Tab] 40 mg PO BID tablet Calcium (Carb)/Vit D 600-400 [Caltrate 600 + D] 1 tablet PO BID Digoxin [Digox] 125 mcg PO QOTHER DAY Multivitamin [Multivitamins] 1 each PO DAILY Promethazine Inj [Phenergan Inj] 25 mg IM Q4H PRN PRN Reason: Nausea Acetaminophen Tab [Tylenol Tab] 650 mg PO Q6H PRN #0 tablet PRN Reason: Fever > 100.4 Or Headache Furosemide Tab [Lasix Tab] 40 mg PO BID DIURETIC #0 tablet Morphine ER Tab [Ms Contin] 15 mg PO BID #60 tablet Metoprolol Succinate 12.5 mg PO BID Loperamide HCl [Loperamide] 2 mg PO DAILY PRN MDD 4 CAPLETS IN 24 HR PRN Reason: Diarrhea Furosemide Tab [Lasix Tab] 60 mg PO BID Citalopram Hydrobromide [Citalopram HBr] 10 mg PO DAILY Donepezil HCl 5 mg PO BEDTIME Guaifenesin/Dextromethorphan [Tussin Dm Syrup] 30 ml PO Q4H PRN PRN Reason: Cough Mirtazapine 15 mg PO BEDTIME Tramadol HCl [Tramadol Tab] 50 mg PO BEDTIME - Follow Up or Referral - Forms/Instructions Exam - Constitutional Vitals: Period Temp Pulse Resp BP Sys/Tamayo Pulse Ox Last 24 Hr 97.5 F-97.9 F 52-81 16-18 102-117/48-74 92-100 General appearance: normal weight, no acute distress - Head Head exam: Present: normal inspection, normocephalic, atraumatic - Eye Eye exam: Present: EOMI Pupils: Present: RAHEEL - ENT ENT exam: Present: normal exam - Neck Neck exam: Present: normal inspection - Respiratory Respiratory exam: Present: clear to auscultation bilaterally - Cardiovascular Cardiovascular exam: Present: regular rate and rhythm - GI/Abdominal GI/Abdominal exam: Present: normal bowel sounds - Extremities Exam Extremities exam: Present: normal inspection Discharge Results Labs on day of discharge: Labs from last 24 hours 12/14/16 12/14/16 12/14/16 05:27 05:27 05:27 WBC 8.9 RBC 3.21 L Hgb 8.4 L Hct 28.9 L MCV 90.0 MCH 26 L MCHC 29.1 L RDW 17.6 H Plt Count 173 MPV 11.9 Neut % (Auto) 64.0 Lymph % (Auto) 18.9 L Mchenry % (Auto) 10.5 Eos % (Auto) 5.7 Baso % (Auto) 0.2 Neut # (Auto) 5.7 Lymph # (Auto) 1.7 Mchenry # (Auto) 0.9 H Eos # (Auto) 0.5 Baso # (Auto) 0.0 Immature Gran % 0.7 Nucleated RBC % 0.0 Immature Gran # 0.06 Nucleated RBCs # 0.00 Sodium 139 Potassium 3.8 Chloride 97 L Carbon Dioxide 32 Anion Gap 13.8 BUN 16 Creatinine 1.30 H GFR Calculation 36 BUN/Creatinine Ratio 12.00 Glucose 101 Calculated Osmolality 277.5 Calcium 8.6 Magnesium 2.2 B-Natriuretic Peptide 244 H DS: Provider Date of admission: 12/11/16 14:33 Primary care physician: . No PCP Attending physician on admission: Valeria Smith MD Consults: 12/11/16 15:42 Consult to Pharmacy [CONS] Routine Reason for Pharmacy Consult: Adjust Meds Renal Funct 12/11/16 16:09 Consult to Physician [CONS] Routine Comment: plueral effusion, possible embolism Consulting Provider: Calvin Corado Consult to Specialist Group: Pulmonology When should Consulting Provider be notified: In am Person Notified: [email or web address] Date Notified: 12/11/16 Time Notified: 16:37 12/12/16 09:03 Consult to Case Mgmt/Social Srvs [CONS] Routine Reason for Case Mgmt/Social Srvs: Discharge Planning Consult to Occupational Therapy [CONS] Routine Reason for Occupational Therapy: Evaluate and Treat Start Therapy: Today PT [Consult to Physical Therapy] [CONS] Routine Reason for Physical Therapy: Evaluate and Treat Start Therapy: Today Discharging clinician: Valeria Smith MD Expected date of discharge: 12/14/16
[2016-12-14] MEDS: ENOXAPARIN 30 MG/0.3 ML SYRINGE SUBCUT SCH (15:34)
[2016-12-14 17:10] VITALS: BP 112/62
--- NOTE | 2016-12-23 09:15 | Physician Query Form ---
CLICK EDIT DOCUMENT TO SELECT QUERY ANSWER --> OK --> SIGN Nikky Peralta RN Clinical Environmental Remediation Specialist W) [phone] (f) [phone] [email or web address]: Make your selection(s) from the choices in EACH section by typing an "x" and enter comments in the comment section. Please use your independent medical judgment in providing your response. This request does not imply that any particular answer is desired or expected. CLINICAL INDICATORS: (Providers should not edit this section) Based on documentation of "Acute CHF exacerbation" BNP as high as 244. Echo shows "EF of 50%. Overall systolic function appears to be low" Treated with IV Lasix. Discharged home on PO Lasix. Please provide further specificity regarding CHF. ACUITY: ( ) Acute ( ) Chronic ( x) Acute on Chronic ( ) Clinicallly unable to determine TYPE: (x ) Systolic ( ) Diastolic ( ) Combined Systolic/Diastolic ( ) Other, please specify: ( ) Clinically unable to determine ( ) The patient does NOT have CHF COMMENTS: Use of terms such as suspected, likely, or probable (associated with a specific diagnosis that is being evaluated, monitored, or treated as if it exists) are acceptable and can be restated in the discharge summary if not ruled out. MTDD
== END 2016-12-14 18:00 | DRG 291 ==
LOC: EDBD → EDUNIT# → N.ED 12:00 → N.EDINP 14:33 → N.5E 15:12
PROVIDERS: ADMIT Internal Medicine; ATTEND Internal Medicine